=== PATIENT | male | born 1990 | race Caucasian/White ===

== ENCOUNTER 2019-09-07 12:42 | Emergency (ER) | payer SELFPAY ==
--- OUTSIDE RECORDS SUMMARY | 2019-09-07 13:13 | XMS REPORT | Continuity of Care Document ---
:1990 External Reference #:[id number] Author Name ELIOT Farah Address [address] [place] [address] Care Team Providers Name Role Phone Pj De La Paz MD - Family Care Team Information [employer] Medicine Problems Description No Information Available Social History Type Date Description Comments Sex Unknown ETOH Use Rarely consumes alcohol Tobacco Use Start: Unknown Patient has never smoked Smoking Status Reviewed: 11/15/18 Patient has never smoked Allergies, Adverse Reactions, Alerts Description No Known Drug Allergies Medications Description No Active Medications Immunizations CPT Code Status Date Vaccine Lot # [id number] Given 11/15/2018 Tdap Tetanus, W Pertussis [id number] Given 11/15/2018 Influenza Virus Vaccine, Recombinant Dna, [id number] Hemagglutnin Protein On Vital Signs Date Vital Result Comment 09/07/2019 11:29am BP Systolic 122 mmHg BP Diastolic 46 mmHg Heart Rate 100 /min Body Temperature 100.0 F Respiratory Rate 16 /min Height 69.5 inches 5'9.50" Weight 166.00 lb BMI (Body Mass Index) 24.2 kg/m2 11/15/2018 1:51pm BP Systolic 124 mmHg BP Diastolic 58 mmHg Heart Rate 92 /min Body Temperature 98.4 F Respiratory Rate 16 /min Height 69.5 inches 5'9.50" Weight 156.00 lb BMI (Body Mass Index) 22.7 kg/m2 Results Test Date Facility Test Result H/L Range Note Ua - Micro ([facility]) 09/07/2019 [facility] Appearance clear (607)- - Color dk. yellow Glucose, Urine ([facility]/CMC/CTX) neg Bilirubin positive confirmed with o Ketones trace SP Grav 1.015 Blood trace-intact PH 7.0 Protein neg Urobil 0.2 Nitrite neg Leukocytes ([facility]/CMC/Centrex) neg Hyaline - /Lpf Granular - /Lpf WBC ([facility],Centrex) - RBC 0-1 Mucus ([facility]/CBC/Centrex) - /Lpf Epith - /Lpf Bacteria - /Hpf Amorphous ([facility]ma/CMC/Centrex) - /Lpf Crystals, Fluid ([facility]/CMC/CTX) - Z#Comments - CBC Electronic ([facility] New) 09/07/2019 [facility], [place] WBC 9.90 4.0-10.0 (607)- - RBC 4.78 3.93-6.0 Hemoglobin ([facility]ma/CMC/CTX) 13.8 g/dL 12.0-17.0 Hematocrit ([facility]ma/CMC/CTX) 41.7 % 35.0-50.0 Mean Corpuscular Vol 87.2 fL 80-95 Mean Corpuscular Hemoglobin 28.9 pg 25.6-32.2 Mean Corpuscular Hemo Concen 33.1 g/dL 32.2-36.0 Platelets 136 10^3/ul Low 163-400 RDW-CV 12.1 11.6-14.4 Mean Platelet Volume 10.0 fL 8.0-12.4 Absolute Neutrophils BLD 2.58 1.56-6.13 Absolute Lymphocytes 5.73 High 1.18-3.74 Absolute Monocytes BLD Auto 1.50 High 0.24-0.82 Absolute Eos Blood 0.03 Low 0.04-0.54 Absolute Basophils 0.04 0.01-0.08 Neutrophil % 26.0 % Low 34.0-70.0 Lymph% 57.9 % High 20.0-52.0 Monocytes % 15.2 % High 5.0-12.0 Eos % 0.3 % Low 0.7-7.0 Basophil% 0.4 % 0-1.2 Procedures Description No Information Available Medical Devices Description No Information Available Encounters Description No Information Available Assessments Date Code Description Provider 09/07/2019 R10.84 Generalized abdominal pain ELIOT Farah 09/07/2019 R39.198 Other difficulties with micturition ELIOT Farah 09/07/2019 R50.9 Fever, unspecified CHARLY FarahP 09/07/2019 R00.0 Tachycardia, unspecified ELIOT Farah Plan of Treatment 09/07/2019 - Gena Olsen, FNPR10.84 Generalized abdominal painNew Labs: Comp Metabolic-ALL Lab Compani, Ordered: 09/07/19Comments:The patient was instructed to call if symptoms of abdominal pain worsen.R39.198 Other difficulties with rwrhsutwhesW74.9 Fever, xktijvzrmztH29.0 Tachycardia, unspecified Functional Status Description No Information Available Mental Status Description No Information Available Referrals Description No Information Available
[2019-09-07 14:05] LABS: Hematocrit 42 % (42-52); Hemoglobin 14.5 g/dL (14.0-18.0); Mean Corpuscular HGB Conc 34 g/dL (31-36); Mean Corpuscular Hemoglobin 30 pg (27-31); Mean Corpuscular Volume 86 fL (80-94); Mean Platelet Volume 8.8 fL (7.4-10.4); Platelet Count 140 10^3/uL (150-450); Red Blood Count 4.92 10^6 /uL (4.18-5.48); Red Cell Distribution Width 13 % (10-15)
[2019-09-07 14:27] LABS: Albumin 4.5 g/dL (3.2-5.2); Albumin/Globulin Ratio 1.4 (1-3); BUN/Creatinine Ratio 9.5 (8-20); C Reactive Protein 1.84 mg/L (<8.01); Calcium 9.8 mg/dL (8.6-10.3); EGFR African American 183.5 (>60); EGFR Non-African American 151.6 (>60); Globulin 3.2 g/dL (2-4); Potassium 3.9 mmol/L (3.5-5.0); Total Bilirubin 3.6 mg/dL (0.2-1.0); Total Protein 7.7 g/dL (6.4-8.9)
[2019-09-07] MEDS ORDERED: NS 0.9% 1000 ML** 1,000 ML IV ONE ×2 (14:29→14:30)
[2019-09-07 14:32] LABS: Urine Appearance Clear; Urine Bilirubin Negative (Negative); Urine Blood Negative (Negative); Urine Color Yellow; Urine Glucose Negative (Negative); Urine Ketones 1+ (Negative); Urine Nitrite Negative (Negative); Urine Protein Negative (Negative); Urine Specific Gravity 1.002 (1.010-1.030); Urine Urobilinogen Negative (Negative)
[2019-09-07 14:45] LABS: ABS Lymphocytes 3.1 10^3/ul (1.0-4.8); ABS Monocytes 0.9 10^3/ul (0-0.8); ABS Neutrophils 3.9 10^3/ul (1.5-7.7); Eosinophil % 0.1 %; Lymphocyte % 38.3 %; Nucleated Red Blood Cells % 0.4
--- NOTE | 2019-09-07 14:58 | ED ---
Abdominal Pain/Male - HPI Summary HPI Summary: Pt. is a 29 y.o male who presents to the ER for abdominal pain and dark urine. Pt. states he has had generalized abdominal pain over the last several days that is worse with eating. Pt. was seen by PCP [employer] and noted to have a fever there. Pt. notes that his urine has been dark. Past hx of intussusception. Pt. otherwise denies CP, SOB, coughing, V/D. Sxs are moderate in severity. No current modifying factors. - History of Current Complaint Chief Complaint: EDAbdPain Stated Complaint: NEEDS ADDITIONAL TESTS PER PT Time Seen by Provider: 09/07/19 14:20 Hx Obtained From: Patient Pain Intensity: 3 - Allergies/Home Medications Allergies/Adverse Reactions: Allergies Allergy/AdvReac Type Severity Reaction Status Date / Time No Known Allergies Allergy Verified 09/07/19 12:44 PMH/Surg Hx/FS Hx/Imm Hx Previously Healthy: Yes Infectious Disease History: No Infectious Disease History: Denies: Traveled Outside the [place] in Last 30 Days - Family History Known Family History: Positive: Non-Contributory - Social History Occupation: Student Lives: Dormitory/Roommates Alcohol Use: Occasionally Substance Use Type: Reports: None Smoking Status (MU): Never Smoked Tobacco Review of Systems Positive: Fever, Chills Cardiovascular: Negative Respiratory: Negative Positive: Abdominal Pain, Nausea. Negative: Vomiting, Diarrhea Genitourinary: Other - "dark urine" Negative: dysuria, flank pain, hematuria Skin: Negative Neurological: Negative All Other Systems Reviewed And Are Negative: Yes Physical Exam Triage Information Reviewed: Yes Vital Signs On Initial Exam: Initial Vitals Temp Pulse Resp BP Pulse Ox 99.4 F 123 20 138/97 96 09/07/19 12:45 09/07/19 12:45 09/07/19 12:45 09/07/19 12:45 09/07/19 12:45 Vital Signs Reviewed: Yes Appearance: Positive: Well-Appearing - Pt. sitting up in bed in NAD. Appears dehydrated. Nontoxic. Skin: Positive: Warm, Dry Head/Face: Positive: Normal Head/Face Inspection Eyes: Positive: Normal, EOMI Neck: Positive: Supple Respiratory/Lung Sounds: Positive: Clear to Auscultation, Breath Sounds Present Cardiovascular: Positive: Normal, RRR Abdomen Description: Positive: Other: - Slightly distended. Abd. is soft with mild diffuse tenderness throughout. No guarding. No CVA tenderness. Neurological: Positive: Normal, CN Intact II-III Procedures - Sedation Patient Received Moderate/Deep Sedation with Procedure: No Diagnostics - Vital Signs Vital Signs Temp Pulse Resp BP Pulse Ox 09/07/19 12:45 99.4 F 123 20 138/97 96 - Laboratory Lab Results: Lab Results 09/07/19 09/07/19 09/07/19 Range/Units 13:46 13:46 13:46 WBC 8.0 (3.5-10.8) 10^3/uL RBC 4.92 (4.18-5.48) 10^6 /uL Hgb 14.5 (14.0-18.0) g/dL Hct 42 (42-52) % MCV 86 (80-94) fL MCH 30 (27-31) pg MCHC 34 (31-36) g/dL RDW 13 (10-15) % Plt Count 140 L (150-450) 10^3/uL MPV 8.8 (7.4-10.4) fL Neut % (Auto) 49.4 % Lymph % (Auto) 38.3 % [place] % (Auto) 11.8 % Eos % (Auto) 0.1 % Baso % (Auto) 0.4 % Absolute Neuts (auto) 3.9 (1.5-7.7) 10^3/ul Absolute Lymphs (auto) 3.1 (1.0-4.8) 10^3/ul Absolute Monos (auto) 0.9 H (0-0.8) 10^3/ul Absolute Eos (auto) 0.0 (0-0.6) 10^3/ul Absolute Basos (auto) 0.0 (0-0.2) 10^3/ul Absolute Nucleated RBC 0.0 10^3/ul Neutrophils % Pending Nucleated RBC % 0.4 Normal RBC Morphology Pending Sodium 134 L (135-145) mmol/L Potassium 3.9 (3.5-5.0) mmol/L Chloride 99 L (101-111) mmol/L Carbon Dioxide 26 (22-32) mmol/L Anion Gap 9 (2-11) mmol/L BUN 6 (6-24) mg/dL Creatinine 0.63 L (0.67-1.17) mg/dL Est GFR ( Amer) 183.5 (>60) Est GFR (Non-Af Amer) 151.6 (>60) BUN/Creatinine Ratio 9.5 (8-20) Glucose 100 (70-100) mg/dL Lactic Acid 1.1 (0.5-2.0) mmol/L Calcium 9.8 (8.6-10.3) mg/dL Total Bilirubin 3.60 H (0.2-1.0) mg/dL AST 146 H (13-39) U/L ALT 269 H (7-52) U/L Alkaline Phosphatase 210 H (34-104) U/L C-Reactive Protein 1.84 (<8.01) mg/L Total Protein 7.7 (6.4-8.9) g/dL Albumin 4.5 (3.2-5.2) g/dL Globulin 3.2 (2-4) g/dL Albumin/Globulin Ratio 1.4 (1-3) Lipase 62 (11.0-82.0) U/L Urine Color Urine Appearance Urine pH (5-9) Ur Specific [place] (1.010-1.030) Urine Protein (Negative) Urine Ketones (Negative) Urine Blood (Negative) Urine Nitrate (Negative) Urine Bilirubin (Negative) Urine Urobilinogen (Negative) Ur Leukocyte Esterase (Negative) Urine Glucose (Negative) 09/07/19 Range/Units 14:00 WBC (3.5-10.8) 10^3/uL RBC (4.18-5.48) 10^6 /uL Hgb (14.0-18.0) g/dL Hct (42-52) % MCV (80-94) fL MCH (27-31) pg MCHC (31-36) g/dL RDW (10-15) % Plt Count (150-450) 10^3/uL MPV (7.4-10.4) fL Neut % (Auto) % Lymph % (Auto) % [place] % (Auto) % Eos % (Auto) % Baso % (Auto) % Absolute Neuts (auto) (1.5-7.7) 10^3/ul Absolute Lymphs (auto) (1.0-4.8) 10^3/ul Absolute Monos (auto) (0-0.8) 10^3/ul Absolute Eos (auto) (0-0.6) 10^3/ul Absolute Basos (auto) (0-0.2) 10^3/ul Absolute Nucleated RBC 10^3/ul Neutrophils % Nucleated RBC % Normal RBC Morphology Sodium (135-145) mmol/L Potassium (3.5-5.0) mmol/L Chloride (101-111) mmol/L Carbon Dioxide (22-32) mmol/L Anion Gap (2-11) mmol/L BUN (6-24) mg/dL Creatinine (0.67-1.17) mg/dL Est GFR ( Amer) (>60) Est GFR (Non-Af Amer) (>60) BUN/Creatinine Ratio (8-20) Glucose (70-100) mg/dL Lactic Acid (0.5-2.0) mmol/L Calcium (8.6-10.3) mg/dL Total Bilirubin (0.2-1.0) mg/dL AST (13-39) U/L ALT (7-52) U/L Alkaline Phosphatase (34-104) U/L C-Reactive Protein (<8.01) mg/L Total Protein (6.4-8.9) g/dL Albumin (3.2-5.2) g/dL Globulin (2-4) g/dL Albumin/Globulin Ratio (1-3) Lipase (11.0-82.0) U/L Urine Color Yellow Urine Appearance Clear Urine pH 7.0 (5-9) Ur Specific [place] 1.002 L (1.010-1.030) Urine Protein Negative (Negative) Urine Ketones 1+ A (Negative) Urine Blood Negative (Negative) Urine Nitrate Negative (Negative) Urine Bilirubin Negative (Negative) Urine Urobilinogen Negative (Negative) Ur Leukocyte Esterase Negative (Negative) Urine Glucose Negative (Negative) Result Diagrams: 09/07/19 13:46 09/07/19 13:46 Lab Statement: Any lab studies that have been ordered have been reviewed, and results considered in the medical decision making process. Abdominal Pain Male Course/Dx - Course Assessment/Plan: Pt. with vague complaints of abd. pain and malaise. Low grade fever and tachycardic. Pt. appears dehydrated on exam. Started on 2L NSS. He has a benign abd. exam without reproducible pain. CBC shows mildly low platelets. CMP shows elevated bilirubin of 3.6, AST 146, ALT 269 and alk phos of 210. GB u/s ordered for further evaluation. Lab added mono spot given high lymphocytes and mono spot is positive. Urine shows ketones without other abnormalities. GB U/S per radiology: IMPRESSION: 1. Mostly collapsed gallbladder with no intra or extrahepatic biliary ductal dilatation. The collapsed state of the gallbladder likely accounts for the mild gallbladder wall. thickening. 2. No cholelithiasis. Lab changes likely secondary to mono. Discussed with Dr. Mercado who agrees no further testing needed at this time. Pending hepatitis panel. Results discussed with pt. Advised he will need to f.u with pcp for repeat labs in about a week. To increase fluids and rest. Advised no contact sports. Advised avoid tylenol and etoh. To increase fluids and rest. Pt. will return to ER if sxs change or worsen. Pt .understands and agrees with plan. - Diagnoses Differential Diagnosis/HQI/PQRI: Appendicitis, Diverticulitis, Gall Bladder Disease, Hepatitis, Pneumonia, Urinary Tract Infection Provider Diagnoses: Mononucleosis, Elevated liver enzymes Discharge ED - Sign-Out/Discharge Documenting (check all that apply): Patient Departure - Discharge Plan Condition: Improved Disposition: HOME Patient Education Materials: Mononucleosis (ED) Referrals: Pj De La Paz MD [Primary Care Provider] - Additional Instructions: Schedule a follow up appointment with our PCP within one week for repeat liver function test Increase fluids and rest Ibuprofen for pain and fever as directed Avoid tylenol and alcohol No contact sports x 4 weeks Return to ER if symptoms change or worsen - Billing Disposition and Condition Condition: IMPROVED Disposition: Home - Attestation Statements Provider Attestation: I was available for consult. This patient was seen by the DANIEL. The patient was not presented to, seen by, or examined by me. Earl Mercado MD
[2019-09-07 16:37] VITALS: BP 134/78
[2019-09-07 17:20] LABS: Hepatitis B Surface Antigen Nonreactive (Nonreactive)
[2019-09-07 17:37] LABS: Hepatitis C Antibody Negative (Negative)
== END 2019-09-07 16:36 | disposition home or self-care (01) ==
LOC: ED 12:42
DX: B27.90 Infectious mononucleosis, unspecified without complication (principal); R79.89 Other specified abnormal findings of blood chemistry
CPT/HCPCS: 36415; 76705; 80053; 80074; 81003; 83605; 83690; 85025; 85060; 86140; 86308; 96360; 99283